=== PATIENT | female | born 1970 | race African-American/Black ===

== ENCOUNTER 2017-10-15 12:05 | Emergency (ER) | payer MEDICAID ==
[2017-10-15 15:35] LABS: URINE PH (Dip) POC 5.5 (5.0-8.5)
[2017-10-15 15:35] LABS: URINE BLOOD (Dip) POC Negative (NEGATIVE); URINE GLUCOSE (Dip) POC Negative (NEGATIVE); URINE KETONES (Dip) POC Trace (NEGATIVE); URINE LEUKOCYTE EST (Dip) POC Negative (NEGATIVE); URINE NITRITE (Dip) POC Negative (NEGATIVE); URINE TOTAL PROTEIN POC 1+ (NEGATIVE)
[2017-10-15] MEDS: ACETAMINOPHEN 500 MG TAB PO (15:35)
[2017-10-15] MEDS: ONDANSETRON 4 MG INJ IV (15:35)
[2017-10-15 15:42] LABS: ADD MAN DIFF? NO
[2017-10-15 15:47] LABS: HEMATOCRIT 39.6 % (37.0-47.0); MEAN CORPUSCULAR HGB CONC 32.8 g/dl (32.0-37.0); MEAN CORPUSCULAR VOLUME 88.4 fl (82.0-101.0); MEAN PLATELET VOLUME 9.8 fl (7.4-10.4); PLATELET COUNT 235 10^3/UL (140-415); RED BLOOD COUNT 4.48 10^6/ul (4.20-5.40); RED CELL DISTRIBUTION WIDTH 12.2 % (11.5-14.5)
[2017-10-15 15:47] LABS: WHITE BLOOD COUNT 3.7 10^3/ul (4.8-10.8)
[2017-10-15 16:00] LABS: POSITIVE DIFF @See below
[2017-10-15 16:08] LABS: ANION GAP 14 (8-16); BLOOD UREA NITROGEN 14 mg/dl (7-20); CALCIUM 9.4 mg/dl (8.4-10.2); CARBON DIOXIDE 30 mmol/L (21-31); CHLORIDE 101 mmol/L (97-110); CREATININE 0.79 mg/dl (0.44-1.00); GLUCOSE 98 mg/dl (70-220); POTASSIUM 3.3 mmol/L (3.5-5.1); SODIUM 142 mmol/L (135-144)
[2017-10-15] MEDS: SOD CHLORIDE 0.9% 1,000 ML IV (16:52)
== END 2017-10-15 18:19 | disposition home or self-care (01) ==
LOC: FTE 12:05
DX: R53.1 Weakness (principal); R05 Cough; R11.10 Vomiting, unspecified
CPT/HCPCS: 36415; 71010; 80048; 81003; 85025; 87400; 93005; 96374; 99285-25

== ENCOUNTER 2018-08-06 11:41 | Emergency (ER) | payer SELFPAY, MEDICAID | END 2018-08-06 15:31 | disposition left against medical advice (07) | LOC: E/R 11:41 | DX: Z53.21 Procedure and treatment not carried out due to patient leaving prior to being seen by health care provider (principal) | CPT/HCPCS: 93005 ==